=== PATIENT | male | born 1975 | race Asian ===

== ENCOUNTER 2019-04-18 15:49 | Inpatient (IN) | payer BC ==
[~2019-04-18] VITALS: Ht 182.9 cm; Wt 65.8 kg
[2019-04-18 15:53] VITALS: Ht 182.9 cm; Wt 65.8 kg
[2019-04-18 18:31] LABS: BASOPHIL % 0.7 % (0-2); PLATELET COUNT 382 x10^3mcL (130-400); RED CELL DISTRIBUTION WIDTH 13.8 % (11.5-14.5)
[2019-04-18 18:47] LABS: CALCIUM 8.9 mg/dL (8.5-10.1); CARBON DIOXIDE 32.8 mmol/L (21-32); CHLORIDE SERUM 104 mmol/L (98-107); CREATININE SERUM 0.9 mg/dL (0.7-1.3); GFR1 > 60 mL/min; GLUCOSE SERUM 93 mg/dL (74-106); POTASSIUM SERUM 4.8 mmol/L (3.5-5.1); SODIUM SERUM 142 mmol/L (136-145)
[2019-04-18 18:51] LABS: ALBUMIN 3.6 g/dL (3.4-5.0); ALKALINE PHOSPHATASE 48 U/L (46-116); ALT/SGPT 53 U/L (16-63); AST/SGOT 34 U/L (15-37); BILIRUBIN TOTAL 0.61 mg/dL (0.20-1.00); LIPASE 92 IU/L (73-393); TOTAL PROTEIN, SERUM 7.5 g/dL (6.4-8.2)
[2019-04-18 23:03] LABS: microscopic required? NO
[2019-04-18 23:22] LABS: UA SPECIFIC GRAVITY <=1.005 (1.005-1.035); urine erythrocyte NEGATIVE (NEGATIVE)
[2019-04-18 23:57] VITALS: BP 108/60
[2019-04-19 01:56] LABS: AMPHETAMINE QUAL UR NONE DETECTED (See below)
[2019-04-19 06:09] VITALS: BP 107/69
[2019-04-19 07:10] LABS: BASOPHIL % 0.6 % (0-2); PLATELET COUNT 368 x10^3mcL (130-400); RED CELL DISTRIBUTION WIDTH 13.6 % (11.5-14.5)
[2019-04-19 07:30] LABS: CALCIUM 8.3 mg/dL (8.5-10.1); CHLORIDE SERUM 106 mmol/L (98-107); CREATININE SERUM 0.7 mg/dL (0.7-1.3); GFR1 > 60 mL/min; GLUCOSE SERUM 78 mg/dL (74-106); MAGNESIUM 2.2 mg/dL (1.8-2.4); PHOSPHOROUS 3.6 mg/dL (2.5-4.9); POTASSIUM SERUM 3.9 mmol/L (3.5-5.1); SODIUM SERUM 142 mmol/L (136-145)
[2019-04-19 09:07] VITALS: BP 90/51
[2019-04-19 12:03] VITALS: BP 84/55
[2019-04-19 16:30] VITALS: BP 103/55
[2019-04-19 23:15] VITALS: BP 99/52
[2019-04-20 03:00] VITALS: BP 104/54
[2019-04-20 05:47] VITALS: BP 96/53
[2019-04-20 07:00] LABS: BASOPHIL % 0.3 % (0-2); PLATELET COUNT 339 x10^3mcL (130-400); RED CELL DISTRIBUTION WIDTH 13.7 % (11.5-14.5)
[2019-04-20 07:15] LABS: CALCIUM 8.2 mg/dL (8.5-10.1); CARBON DIOXIDE 29.4 mmol/L (21-32); CHLORIDE SERUM 105 mmol/L (98-107); CREATININE SERUM 0.7 mg/dL (0.7-1.3); GFR1 > 60 mL/min; GLUCOSE SERUM 104 mg/dL (74-106); POTASSIUM SERUM 3.5 mmol/L (3.5-5.1); SODIUM SERUM 141 mmol/L (136-145)
[2019-04-20 08:24] VITALS: BP 104/63
[2019-04-20] MEDS ORDERED: AUGMENTIN 875-1 EACH PO (11:05)
[2019-04-20 11:06] VITALS: BP 104/63
[2019-04-20] MEDS ORDERED: ACETAMINOPHEN500 M5 PO (11:08)
== END 2019-04-20 16:50 | disposition home or self-care (01) | DRG 352 ==
LOC: ED 15:49 → MU 21:29
PROVIDERS: Emergency Medicine; Surgery; ADMIT Internal Medicine
PROC: 0YU50JZ Supplement Right Inguinal Region with Synthetic Substitute, Open Approach (ICD-10-PCS; principal; 2019-04-19 13:30)
DX: K40.31 Unilateral inguinal hernia, with obstruction, without gangrene, recurrent (principal); D64.9 Anemia, unspecified; Z88.6 Allergy status to analgesic agent; Z82.49 Family history of ischemic heart disease and other diseases of the circulatory system
CPT/HCPCS: C1781; G0378; J0690; J1170; J2250; J2270; J2405; J2704; J3010; J3490; J7030; J7120; Q9967